=== PATIENT | male | born 1995 | race African-American/Black ===

== ENCOUNTER 2020-09-26 18:00 | Emergency (ER) | payer SELFPAY ==
[~2020-09-26] VITALS: Ht 170.2 cm; Wt 74.4 kg
[2020-09-26] MEDS ORDERED: VALACYCLOVIR1000 MG PO (20:28)
[2020-09-26] MEDS ORDERED: ACYCLOVIR400 MG PO (20:29)
== END 2020-09-26 20:43 | disposition home or self-care (01) ==
LOC: ED 18:00
DX: A60.01 Herpesviral infection of penis (principal); F17.200 Nicotine dependence, unspecified, uncomplicated
CPT/HCPCS: 99283